=== PATIENT | male | born 1960 | race Caucasian/White ===

== ENCOUNTER 2016-08-18 20:40 | Inpatient (IN) | payer MEDICAID ==
[~2016-08-18 20:40] MED LIST: ABILIFY15 M1 PO; ACETAMINOPHEN500 M4 PO; CIPRO500 M2 PO; CONDYLOX TP; DOCUSATE SODIU100 M2 PO; DORYX100 MG PO; GABAPENTIN300 M1 PO; HUMALOG100 U/ML; HUMULIN R500 UNIT/1 SC; LANTUS100 U/ML; NAPROXEN250 M1 PO; NORCO 5-325 TA1 EACH PO; NORCO 5/3251 TAB PO; PHENERGAN25 MG PO; TRILEPTAL300 M2 PO; VICTOZA 2-0.6 MG/0.1 SC; [UNRECOGNIZED DRUG - REMARK]
[2016-08-18] MEDS ORDERED: PROTONIX40 M2 PO (20:59)
[2016-08-18] MEDS ORDERED: PRINIVIL20 M1 PO (20:59)
[2016-08-18] MEDS ORDERED: MOBIC7.5 M2 PO (20:59)
[2016-08-18] MEDS ORDERED: HUMULIN R100 UNITS/ (21:00)
[2016-08-18 22:00] LABS: BASO % 0.2 % (0-2); EOS % 6.3 % (0-7); EOSINOPHIL ABSOLUTE COUNT 0.3 tho/cmm (0.0-0.7); HCT-HEMATOCRIT 42.3 % (36.0-53.5); HGB-HEMOGLOBIN 13.7 gm/dl (13.5-17.0); LYMPH % 27.7 % (20-45); LYMPH ABSOLUTE COUNT 1.2 tho/cmm (0.8-4.5); MCH (MEAN CORPUSCULAR HGB) 27.7 pg (28.0-32.0); MCHC MEAN CORPUSCULAR HGB CONC 32.4 % (32.0-36.0); MCV (MEAN CELL VOLUME) 85.6 fl (82.0-96.0); MEAN PLATELET VOLUME 10.1 cmc (9.4-12.4); MONO % 7.7 % (0-12); MONOCYTE ABSOLUTE COUNT 0.3 tho/cmm (0.0-1.2); NEUTROPHIL ABSOLUTE COUNT 2.4 tho/cmm (1.6-8.0); NEUTROPHIL-AUTOMATED 2.4 tho/cmm (1.6-8.0); NEUTROPHILS % 58.1 % (40-80); PLATELET COUNT 159 tho/cmm (150-450); RED BLOOD COUNT 4.94 mil/cmm (4.40-5.70); RED CELL DISTRIBUTION WIDTH 15.4 % (12.4-16.4); WHITE BLOOD COUNT 4.2 tho/cmm (4.0-10.0)
[2016-08-18 22:15] LABS: ALB/GLOB RATIO 0.8 (0.8-2.0); ALBUMIN 3.3 g/dl (3.5-5.0); ALKALINE PHOSPHATASE 88 U/L (33-138); ALT/SGPT 40 U/L (12-78); ANION GAP 14 mmol/L (0-20); AST/SGOT 43 U/L (10-40); BILIRUBIN,TOTAL 0.7 mg/dl (0.0-1.5); BLOOD UREA NITROGEN 16 mg/dl (6-24); CALCIUM 8.3 mg/dl (8.5-10.5); CARBON DIOXIDE-VENOUS 25 mmol/L (22-32); CHLORIDE 105 mmol/l (96-110); CREATININE 0.58 mg/dl (0.60-1.30); GLUCOSE 144 mg/dL (70-110); SODIUM 140 mmol/L (135-145); eGFR VALUE FOR BLACK >90 mL/Min
[2016-08-19 12:39] LABS: CREATININE 0.48 mg/dl (0.60-1.30); eGFR VALUE FOR BLACK >90 mL/Min
[2016-08-20 08:52] LABS: CREATININE 0.53 mg/dl (0.60-1.30); eGFR VALUE FOR BLACK >90 mL/Min
[2016-08-20 15:49] LABS: BASO ABSOLUTE COUNT 0.1 tho/cmm (0.0-0.2); EOSINOPHIL ABSOLUTE COUNT 0.2 tho/cmm (0.0-0.7); HCT-HEMATOCRIT 39.7 % (36.0-53.5); IMMATURE GRANULOCYTES ABSOLUTE 0.09 tho/cmm (0-0.03); IMMATURE GRANULOCYTES PERCENT 1.8 % (0-0.3); LYMPH % 25.3 % (20-45); LYMPH ABSOLUTE COUNT 1.3 tho/cmm (0.8-4.5); MCH (MEAN CORPUSCULAR HGB) 27.9 pg (28.0-32.0); MCHC MEAN CORPUSCULAR HGB CONC 32.7 % (32.0-36.0); MCV (MEAN CELL VOLUME) 85.2 fl (82.0-96.0); MONO % 13.1 % (0-12); MONOCYTE ABSOLUTE COUNT 0.7 tho/cmm (0.0-1.2); NEUTROPHIL ABSOLUTE COUNT 2.8 tho/cmm (1.6-8.0); NEUTROPHIL-AUTOMATED 2.8 tho/cmm (1.6-8.0); NEUTROPHILS % 54.8 % (40-80); PLATELET COUNT 127 tho/cmm (150-450); RED BLOOD COUNT 4.66 mil/cmm (4.40-5.70); RED CELL DISTRIBUTION WIDTH 15.6 % (12.4-16.4)
[2016-08-21 05:17] LABS: BASO % 0.5 % (0-2); EOS % 5.9 % (0-7); EOSINOPHIL ABSOLUTE COUNT 0.2 tho/cmm (0.0-0.7); HCT-HEMATOCRIT 39.8 % (36.0-53.5); HGB-HEMOGLOBIN 12.8 gm/dl (13.5-17.0); LYMPH % 22.7 % (20-45); LYMPH ABSOLUTE COUNT 0.9 tho/cmm (0.8-4.5); MCH (MEAN CORPUSCULAR HGB) 27.6 pg (28.0-32.0); MCHC MEAN CORPUSCULAR HGB CONC 32.2 % (32.0-36.0); MCV (MEAN CELL VOLUME) 85.8 fl (82.0-96.0); MEAN PLATELET VOLUME 10.5 cmc (9.4-12.4); MONOCYTE ABSOLUTE COUNT 0.3 tho/cmm (0.0-1.2); NEUTROPHIL ABSOLUTE COUNT 2.4 tho/cmm (1.6-8.0); NEUTROPHIL-AUTOMATED 2.4 tho/cmm (1.6-8.0); NEUTROPHILS % 62.9 % (40-80); PLATELET COUNT 145 tho/cmm (150-450); RED BLOOD COUNT 4.64 mil/cmm (4.40-5.70); RED CELL DISTRIBUTION WIDTH 15.5 % (12.4-16.4); WHITE BLOOD COUNT 3.9 tho/cmm (4.0-10.0)
[2016-08-21 05:29] LABS: ANION GAP 10 mmol/L (0-20); BLOOD UREA NITROGEN 8 mg/dl (6-24); CALCIUM 8.2 mg/dl (8.5-10.5); CARBON DIOXIDE-VENOUS 28 mmol/L (22-32); CHLORIDE 108 mmol/l (96-110); CREATININE 0.47 mg/dl (0.60-1.30); GLUCOSE 125 mg/dL (70-110); SODIUM 142 mmol/L (135-145); eGFR VALUE FOR BLACK >90 mL/Min
[2016-08-21] MEDS ORDERED: ASPIRIN81 M1 PO (16:51)
[2016-09-11] MEDS ORDERED: PEPCID20 M1 PO (08:46)
== END 2016-08-21 17:15 | DRG 74 ==
LOC: EDMED 20:40 → EMR2 08-19 00:50 → CAR1 08-19 00:51
PROVIDERS: Emergency Medicine; Family Medicine; Nurse Practitioner; Nurse Practitioner Acute Care; Psychiatry & Neurology Neurology; Registered Nurse; ADMIT Internal Medicine
PROC: 0DB58ZX Excision of Esophagus, Via Natural or Artificial Opening Endoscopic, Diagnostic (ICD-10-PCS; principal; 2016-08-19)
PROC: 0DB68ZX Excision of Stomach, Via Natural or Artificial Opening Endoscopic, Diagnostic (ICD-10-PCS; 2016-08-19)
PROC: BD47ZZZ Ultrasonography of Gastrointestinal Tract (ICD-10-PCS; 2016-08-19)
DX: G70.9 Myoneural disorder, unspecified (principal); Z68.42 Body mass index [BMI] 45.0-49.9, adult; R13.10 Dysphagia, unspecified; E11.40 Type 2 diabetes mellitus with diabetic neuropathy, unspecified; E88.09 Other disorders of plasma-protein metabolism, not elsewhere classified; E66.01 Morbid (severe) obesity due to excess calories; R16.2 Hepatomegaly with splenomegaly, not elsewhere classified; R63.4 Abnormal weight loss; K29.70 Gastritis, unspecified, without bleeding; R11.2 Nausea with vomiting, unspecified; F41.9 Anxiety disorder, unspecified; Z53.9 Procedure and treatment not carried out, unspecified reason; K21.9 Gastro-esophageal reflux disease without esophagitis; I10 Essential (primary) hypertension; Z79.4 Long term (current) use of insulin; Z88.8 Allergy status to other drugs, medicaments and biological substances; Z91.040 Latex allergy status; M19.90 Unspecified osteoarthritis, unspecified site
CPT/HCPCS: C1769; C9113; J2405; J7030; Q9967